=== PATIENT | female | born 1980 | race Caucasian/White ===

== ENCOUNTER 2021-12-24 12:32 | Outpatient (CLI) | payer MEDICAID, SELFPAY ==
[2021-12-24 13:01] VITALS: BP 136/86; PULSE 66; RESP 20; TEMP 36.8; O2SAT 97
[2021-12-24] MEDS: Omnipaque 240 MG/ML 50 ML BTL IJ (13:30)
[2021-12-24] MEDS: Dexamethasone Sod. Phos./Pres-Free 10 MG/ML VIAL IJ (13:30)
[2021-12-24 13:31] VITALS: BP 112/67; PULSE 78; RESP 12; O2SAT 97
--- NOTE | 2021-12-24 13:31 | PDOC.PAIN ---
Pain Clinic Procedure Note Procedure Note Procedure Note: LUMBAR / SACRAL TRANSFORAMINAL INJECTION Arminda Whaley has been referred [facility] for a transforaminal nerve root block and steroid injection. COMMENTS: She was previously evaluated in our clinic. Pre-procedure pain VAS = 7/10 Dx: Lumbosacral radiculopathy Patient was interviewed and the medical record reviewed. There were no medical, pharmacologic, radiographic or other structural contraindications to attempting fluoroscopically guided transforaminal nerve root block and epidural steroid injection. Risks and expected side effects as well as potential benefit of the procedure were reviewed and voiced concerns addressed. The printed consent form was signed and witnessed. Standard time-out procedure was performed. Patient was placed in the prone position on the fluoroscopy table and automated blood pressure cuff and pulse oximeter applied. Fluoroscopy was utilized to identify the right S1 neural foramen. A skin mina was made for the needle insertion site. A Chlorhexadine prep was carried out, and sterile drapes were applied. Local anesthesia was achieved in the skin and subcutaneous tissues. A 22 gauge 3.5 spinal needle was placed into the right S1 neuroforamina. After negative aspiration, 2 ml of Omnipaque 240 was injected confirming position in A/P and lateral views. This showed a good spread of dye transforaminally into the epidural space. There was no vascular update with contrast injection under continuous fluoroscopy and digital substraction. 15 mg of Dexamethasone was injected, followed by 0.5 ml of 1% Xylocaine flush for the nerve root block, as well. There was no unusual discomfort expressed.The needle was withdrawn. The patient tolerated the procedure well. A Band-Aid was applied. Vital signs were stable throughout the procedure and were as recorded in nursing records. If given, dosages of intravenous drugs for anxiolysis and analgesia were documented in nursing records. Follow up plans and appointments were discussed. Post procedure instruction was given as documented in nursing records and patient was discharged in the care of an identified retail delivery driver. COMMENTS: Post-procedure pain VAS was 2/10. Bernardo Quezada DO, MPH [facility]-Pain Management [facility] CC: Diaz Chakraborty
--- NOTE | 2021-12-24 13:34 | DI.RAD_ITS ---
Exam(s) XR PAIN CLINIC LUMBAR SP 2V EXAM: XR PAIN CLINIC LUMBAR SP 2V CLINICAL HISTORY: Dx: Lumbar Radiculopathy TECHNIQUE: 2D and realtime digital imaging was performed. Radiologist not present. CONTRAST MATERIAL: None. COMPARISON: No exams were available for comparison FINDINGS: Fluoroscopy was provided for pain management therapy. Please refer to procedure report or details. Cumulative dose: Ka,r=0.50 mGy IMPRESSION: RADIATION DOSE DELIVERED:
== END 2021-12-24 12:33 | disposition home or self-care (01) ==
LOC: PC 12:32
PROVIDERS: PCP Physician Assistant Medical; Visit Provider Preventive Medicine Occupational Medicine
DX: M54.17 Radiculopathy, lumbosacral region (principal)
CPT/HCPCS: 64483; 72100; Q9967

== ENCOUNTER 2022-03-26 07:42 | Outpatient (CLI) | payer MEDICAID, SELFPAY ==
--- NOTE | 2022-03-26 06:00 | DI.RAD_ITS ---
Exam(s) XR PAIN CLINIC LUMBAR SP 2V EXAM: XR PAIN CLINIC LUMBAR SP 2V CLINICAL HISTORY: Dx: Lumbar Radiculopathy. TECHNIQUE: Fluoroscopy was provided for the referring physician for guidance with performing pain cl inic injection procedure. COMPARISON: No exams were available for comparison FINDINGS: Please see procedure note for details. Fluoro time: 28.8 seconds RADIATION DOSE DELIVERED: Ka,r=8.40 mGy
[2022-03-26 07:54] VITALS: BP 138/90; PULSE 96; RESP 20; TEMP 36.7; O2SAT 97
--- NOTE | 2022-03-26 08:24 | PDOC.PAIN ---
Date of service: 03/26/22 Time of Service: 08:31 Pain Clinic Procedure Note Procedure Note Procedure Note: LUMBAR / SACRAL TRANSFORAMINAL INJECTION Arminda Whaley has been referred to the [facility] for a transforaminal nerve root block and steroid injection. COMMENTS: She had this procedure completed on 12/24/21 with about 50% improvement in pain to date. Continues to have pain to the right leg in the S1 distribution, but this is much better. Pre-procedure pain VAS was 6/10. Dx: Lumbosacral radiculopathy Patient was interviewed and the medical record reviewed. There were no medical, pharmacologic, radiographic or other structural contraindications to attempting fluoroscopically guided transforaminal nerve root block and epidural steroid injection. Risks and expected side effects as well as potential benefit of the procedure were reviewed and voiced concerns addressed. The printed consent form was signed and witnessed. Standard time-out procedure was performed. Patient was placed in the prone position on the fluoroscopy table and automated blood pressure cuff and pulse oximeter applied. Fluoroscopy was utilized to identify the right [id number] foramen. A skin mina was made for the needle insertion site. A Chlorhexadine prep was carried out, and sterile drapes were applied. Local anesthesia was achieved in the skin and subcutaneous tissues. A 22 gauge 5 spinal needle was then inserted, advanced with fluoroscopic guidance into the neural foramen, confirmed on the lateral view. After negative aspiration, 1 ml of Omnipaque 240 was injected confirming position in A/P and lateral views. This showed a good spread of dye transforaminally into the epidural space. There was no vascular update with contrast injection under continuous fluoroscopy and digital substraction. 15 mg of Dexamethasone was injected, followed by 0.5 ml of 1% Xylocaine flush for the nerve root block, as well. There was no unusual discomfort expressed.The needle was withdrawn. The patient tolerated the procedure well. A Band-Aid was applied. Vital signs were stable throughout the procedure and were as recorded in nursing records. If given, dosages of intravenous drugs for anxiolysis and analgesia were documented in nursing records. Follow up plans and appointments were discussed. Post procedure instruction was given as documented in nursing records and patient was discharged in the care of an identified pick up and delivery driver. COMMENTS:Post-procedure pain VAS was 3/10. This procedure can be completed up to 3 times per 12 months if it is helpful. Bernardo Quezada DO, MPH [facility] Management [facility] CC: Diaz Chakraborty
[2022-03-26] MEDS: Dexamethasone Sod. Phos./Pres-Free 10 MG/ML VIAL IJ (08:29)
[2022-03-26] MEDS: Omnipaque 240 MG/ML 50 ML BTL IJ (08:42)
[2022-03-26 08:44] VITALS: BP 144/85; PULSE 90; RESP 15; O2SAT 99
== END 2022-03-26 07:43 | disposition home or self-care (01) ==
PROVIDERS: PCP Physician Assistant Medical; Visit Provider Preventive Medicine Occupational Medicine
DX: M54.17 Radiculopathy, lumbosacral region (principal)
CPT/HCPCS: 64483; 72100; Q9967